=== PATIENT | female | born 1985 | race Caucasian/White ===

== ENCOUNTER 2017-11-15 19:33 | Emergency (ER) | payer SELFPAY | END 2017-11-15 20:09 | disposition left against medical advice (07) | LOC: ERS 19:33 | DX: Z53.21 Procedure and treatment not carried out due to patient leaving prior to being seen by health care provider (principal) ==

== ENCOUNTER 2018-08-18 20:04 | Emergency (ER) | payer SELFPAY ==
--- NOTE | 2018-08-18 21:53 | RAD ---
RADIOGRAPH RIGHT ANKLE TWO VIEWS: DATE: 08-18-18 TIME: 8:39 P.M. HISTORY: 32-year-old female status post-acute ankle trauma from fall. FINDINGS: There is a transversely oriented linear lucency at the distal aspect of the lateral malleolus. Distal to that, there is a 0.8 x 0.4 cm osseous fragment very close to the distal cortical tip of the later al malleolar distal fragment. This appears to be corticated. There is lateral soft tissue swelling. T he ankle mortise is congruent. Talar dome is maintained. IMPRESSION: 1. Acute, traumatic, nondisplaced, transverse linear avulsion fracture of the distal tip of the later al malleolus. 2. Adjacent ossific fragment very close to the distal tip of the lateral malleolus is either an old, minimally displaced non-united avulsion fracture fragment or accessory ossicle. (Os fibularis). 3. Acute, traumatic lateral soft tissue edema. POS: [facility]
[2018-08-18] MEDS ORDERED: HYDROcodone/Acetaminophen 5/325 mg Tablet ONE (22:40)
== END 2018-08-18 23:05 | disposition home or self-care (01) ==
LOC: ERS 20:04
DX: S82.64XA Nondisplaced fracture of lateral malleolus of right fibula, initial encounter for closed fracture (principal); F17.210 Nicotine dependence, cigarettes, uncomplicated; X50.1XXA Overexertion from prolonged static or awkward postures, initial encounter

== ENCOUNTER 2021-10-14 04:14 | Emergency (ER) | payer OTHER ==
[2021-10-14 04:58] LABS: Bacteria/HPF None Seen HPF (None Seen); Bilirubin Negative (Negative); Blood, Urine Negative (Negative); Clarity Clear (Clear); Glucose, Urine (Dipstick) Normal (Negative); Ketone, Urine Negative (Negative); Leukocyte 250 Leu/uL (Negative); Nitrite Negative (Negative); Pregnancy Test - Urine (BHCG) Negative (Negative); Pregu Control Background? CLEAR/WHITE (CLR/WHITE); Pregu Control Bar Appear? YES (CONTROL BAR); Protein, Urine (Dipstick) Negative (Neg-Trace); Specific Gravity 1.009 (1.002-1.036); Specific Gravity, Urine 1.009 (1.002-1.036); Urobilinogen Normal mg/dL (Less than 2); pH, Urine 6.5 (5.0-9.0)
[2021-10-14] MEDS ORDERED: Ondansetron ODT 4 MG TAB ONE (06:15)
[2021-10-14] MEDS ORDERED: Acetaminophen 500 MG TAB ONE (06:15)
== END 2021-10-14 07:01 | disposition home or self-care (01) ==
LOC: ERS 04:14
DX: J18.9 Pneumonia, unspecified organism (principal); F17.210 Nicotine dependence, cigarettes, uncomplicated; R30.0 Dysuria; R35.0 Frequency of micturition
CPT/HCPCS: 71045; 81003; 81015; 81025; 87086; 87804; Q0162

== ENCOUNTER 2021-10-15 19:43 | Emergency (ER) | payer OTHER ==
[2021-10-15] MEDS ORDERED: Ketorolac Tromethamine 30 MG/ML VIAL ONE (20:40)
[2021-10-15] MEDS ORDERED: diphenhydrAMINE 50 MG/ML VIAL ONE (20:40)
[2021-10-15] MEDS ORDERED: Metoclopramide HCl 10 MG/2 ML VIAL ONE (20:41)
[2021-10-15] MEDS ORDERED: Metoclopramide HCl 10 MG TAB ONE (20:47)
[2021-10-15] MEDS ORDERED: diphenhydrAMINE 50 MG CAP ONE (20:47)
== END 2021-10-15 21:49 | disposition home or self-care (01) ==
LOC: ERS 19:43
DX: R51.9 Headache, unspecified (principal); F17.210 Nicotine dependence, cigarettes, uncomplicated; Z79.899 Other long term (current) drug therapy
CPT/HCPCS: 96372; 99283; J1200; J1885; J2765

== ENCOUNTER 2025-10-20 23:22 | Emergency (ER) | payer BC, SELFPAY | END 2025-10-21 02:22 | disposition home or self-care (01) | LOC: ERS 23:22 | DX: J10.1 Influenza due to other identified influenza virus with other respiratory manifestations (principal) | CPT/HCPCS: 87081; 87428; 87430; 99283 ==